=== PATIENT | female | born 1950 | race Caucasian/White ===

== ENCOUNTER 2019-11-08 14:02 | Outpatient (REF) | payer MEDICARE, BC, SELFPAY ==
[2019-11-08 18:52] LABS: Bilirubin Negative (Negative); Blood Trace-intact (Negative); Clarity Clear (Clear); Glucose Negative (Negative); Ketones Negative (Negative); Leukocyte Esterase Trace (Negative); Nitrite Negative (Negative); Specific Gravity 1.015 (1.005-1.025); Urobilinogen 0.2 EU/dL (Up TO 0.2)
[2019-11-08 19:05] LABS: Bacteria Rare HPF (Negative); C & S Indicated? Yes; Crystals Negative HPF (Negative); Epithelial Cells Few HPF (Negative); Mucus Negative (Negative); RBC 0-2 HPF (0-2); WBC 20-50 HPF (0-5)
== END 2019-11-08 14:22 ==
LOC: NCHCN 14:02
PROVIDERS: PCP Nurse Practitioner Family; Visit Provider Nurse Practitioner Family
DX: R35.0 Frequency of micturition (principal)
CPT/HCPCS: 81003; 81015; 87086

== ENCOUNTER 2019-11-26 11:56 | Outpatient (REF) | payer MEDICARE, BC, SELFPAY | END 2019-11-26 12:16 | LOC: NCHCN 11:56 | PROVIDERS: PCP Nurse Practitioner Family; Visit Provider Nurse Practitioner Family | DX: R39.9 Unspecified symptoms and signs involving the genitourinary system (principal) | CPT/HCPCS: 87086 ==

== ENCOUNTER 2019-11-28 16:17 | Outpatient (REF) | payer MEDICARE, BC, SELFPAY ==
--- NOTE | 2019-11-28 12:00 | PAPFT_PTH ---
PATIENT: Kena Cruz LOC: [facility] U#:[id number] AGE/SX: 68/F ROOM: RE11/28/[address]: Ghulam Gerard MD : 1950 BED: DIS: 11/28/2019 SPEC #: [id number] RECD: 11/28/19 16:49 STATUS: JENATommy REElaina #: [id number] ABHIJIT: 11/28/19 12:[address]: Ghulam Gerard DEPT: [facility] Cytology RECD BY: Sanam Garzon ENTERED: 11/28/19 16:50 SP TYPE: PAPFT OTHR DR: Tory Tiwari Tissues: 1 - CX/ENDOCX FOR PAP SMEARS Procedures: PAP THIN PREP/UVM Screening HPV DNA PROBE Comments: [id number]
--- NOTE | 2019-11-28 12:15 | PAPNONF_PTH ---
PATIENT: Kena Cruz LOC: [facility] U#:[id number] AGE/SX: 68/F ROOM: RE11/28/[address]: Ghulam Gerard MD : 1950 BED: DIS: 11/28/2019 SPEC #: [id number] RECD: 11/28/19 16:51 STATUS: JIE VEGA #: [id number] ABHIJIT: 11/28/19 12:[address]: Ghulam Gerard DEPT: [facility] Cytology RECD BY: Sanam Garzon ENTERED: 11/28/19 16:52 SP TYPE: VIVEK ARCE DR: Tory Tiwari Tissues: 1 - BODY FLUID CYTO(SPUTUM/URINE)UVM Procedures: BODY FLUID CYTO(URINE/SPUTUM) Comments: [id number] (TOTAL VOLUME = 10 ml's) (10 ml's URINE & 10 ml's CYTOLYT ADDED)
== END 2019-11-28 16:37 ==
LOC: LBN 16:17
PROVIDERS: PCP Nurse Practitioner Family; Visit Provider Obstetrics & Gynecology
DX: Z12.4 Encounter for screening for malignant neoplasm of cervix (principal); R31.29 Other microscopic hematuria
CPT/HCPCS: 88142; 87624; 88104

== ENCOUNTER 2020-03-04 01:00 | Outpatient (CLI) | payer MEDICARE, BC, SELFPAY ==
--- NOTE | 2020-03-04 11:15 | DI.MAMMO_ITS ---
EXAM: MG MAMMO SCREENING CLINICAL HISTORY: SCREENING, Z12.39 TECHNIQUE: Bilateral full field digital CC and MLO mammographic images were obtained with 3D tomosyn thesis and utilizing computer aided detection (CAD). COMPARISON: Available for comparison. FINDINGS: Masses/Architectural Distortion: None seen. Microcalcifications: No suspicious pleomorphic-type are seen. Skin Thickening/Nipple Retraction: None. IMPRESSION: 1. No significant interval change with no specific features of malignancy noted. 2. Unless there is more urgent need, screening mammography is recommended, as per [place] [employer] guidelines. BI-RADS Category 1 - Negative Breast Density - Category B - Scattered areas of fibroglandular density A negative radiographic report should not delay biopsy if a dominant or clinically suspicious mass is present. Up to ten percent of cancers are not identified on mammography. A negative report may reinforce clinical impression. Adenosis and dense breasts may obscure an underlying neoplasm. False positive reports average 6 to 10%. Patient will receive a letter notifying them of these results.
== END 2020-03-04 01:20 ==
PROVIDERS: PCP Nurse Practitioner Family; Visit Provider Nurse Practitioner Family
DX: Z12.31 Encounter for screening mammogram for malignant neoplasm of breast (principal)
CPT/HCPCS: 77063; 77067

== ENCOUNTER 2020-10-07 19:17 | Outpatient (REF) | payer MEDICARE, BC, SELFPAY ==
--- NOTE | 2020-10-07 14:30 | PAPNONF_PTH ---
PATIENT: Kena Cruz LOC: [facility] U#:[id number] AGE/SX: 69/F ROOM: RE10/07/[address]: Tory Tiwari : 1950 BED: DIS: 10/07/2020 SPEC #: [id number] RECD: 10/08/20 12:57 STATUS: JIE REElaina #: [id number] ABHIJIT: 10/07/20 14:[address]: Tory Tiwari DEPT: [facility] Cytology RECD BY: Sanam Garzon Tissues: 1 - BODY FLUID CYTO(SPUTUM/URINE)UVM Procedures: BODY FLUID CYTO(URINE/SPUTUM) Comments: [id number] (TOTAL VOLUME = 15 ml's (15 ml's URINE & 15 ml's CYTOLYTE ADDED)
[2020-10-07 20:53] LABS: HCT 43.2 % (36.0-46.0); HGB 13.9 g/dL (11.2-15.7); MCH 31.3 pg (27.0-33.0); MCHC 32.2 % (32.0-36.0); MCV 97.3 fL (80-95); MPV 10.9 fL (8.0-11.0); Platelet Count 207 10^3/uL (130-400); RBC 4.44 10^6/uL (3.93-5.22); RDW 14.2 % (11.7-14.6); RDW-SD 51.3 fL; WBC 4.72 10^3/uL (4.4-10.8)
[2020-10-07 21:00] LABS: Anion Gap 6.6 mmol/L (3-11); BUN 18 mg/dL (7-18); CO2 28.4 mmol/L (21.0-32.0); CREATININE 0.73 mg/dL (0.55-1.02); Calcium 10.4 mg/dL (8.5-10.1); Chloride 105 mmol/L (98-107); Glucose 90 mg/dL (74-106); Potassium 4.4 mmol/L (3.5-5.1); Sodium 140 mmol/L (136-145)
== END 2020-10-07 19:37 ==
LOC: NCHCN 19:17
PROVIDERS: PCP Nurse Practitioner Family; Visit Provider Nurse Practitioner Family
DX: N39.0 Urinary tract infection, site not specified (principal); R31.21 Asymptomatic microscopic hematuria
CPT/HCPCS: 80048; 85027; 88104

== ENCOUNTER 2020-10-15 03:41 | Outpatient (CLI) | payer MEDICARE, BC, SELFPAY ==
--- NOTE | 2020-10-15 | DI.MAMMO_ITS ---
EXAM: MG MAMMO DIAGNOSTIC UNI CLINICAL HISTORY: DIAGNOSTIC, LT BREAST DRAINAGE,N64.52 TECHNIQUE: Left full field digital CC and MLO mammographic images were obtained with 3D tomosynthesi s and utilizing computer aided detection (CAD). COMPARISON: Available for comparison. FINDINGS: Masses/Architectural Distortion: None seen. Microcalcifications: No suspicious pleomorphic-type are seen. Skin Thickening/Nipple Retraction: None. IMPRESSION: 1. No significant interval change with no specific features of malignancy noted. 2. Unless there is more urgent need, screening mammography is recommended, as per [place] [employer] guidelines. BI-RADS Category 1 - Negative Breast Density - Category B - Scattered areas of fibroglandular density Breast density category C or D implies that the patient has dense breast tissue. Dense breast tissue is very common and is not abnormal but dense breast tissue can make it harder to find cancer on a ma mmogram. Also, dense breast tissue may increase their breast cancer risk. This information about the result of the mammogram report was provided to the patient to raise their awareness. Use this report when you speak with the patient about their risks for breast cancer, which includes their family hist ory. At that time, you may recommend for more screening tests (Ultrasound or MRI) as they might be us eful based on their risk. A negative radiographic report should not delay biopsy if a dominant or clinically suspicious mass is present. Up to ten percent of cancers are not identified on mammography. A negative report may reinforce clinical impression. Adenosis and dense breasts may obscure an underlying neoplasm. False positive reports average 6 to 10%. Patient will receive a letter notifying them of these results.
== END 2020-10-15 04:01 ==
PROVIDERS: PCP Nurse Practitioner Family; Visit Provider Nurse Practitioner Family
DX: N64.52 Nipple discharge (principal)
CPT/HCPCS: 77061; 77065; G0279

== ENCOUNTER 2022-03-28 08:59 | Emergency (ER) | payer MEDICARE, BC, SELFPAY ==
[2022-03-28 09:10] VITALS: BP 123/64; PULSE 59; RESP 16; TEMP 36.2; O2SAT 99
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
--- NOTE | 2022-03-28 10:31 | DI.VRAD_ITS ---
PROCEDURE INFORMATION: Exam: XR Left Knee Exam date and time: 03/28/2022 10:09 AM Age: 71 years old Clinical indication: Injury or trauma; Fall; Blunt trauma; Knee; Left TECHNIQUE: Imaging protocol: Radiologic exam of the Left knee. Views: 4 or more views. COMPARISON: No relevant images were readily available for comparison purposes. FINDINGS: Bones/joints: No acute fracture or dislocation. Soft tissues: Unremarkable. IMPRESSION: No acute fracture or dislocation. Dictated and Authenticated by: Neto Spicer MD. Ordering:SERGEY Kelsey MD
[2022-03-28] MEDS: Acetaminophen 325 MG TAB 650 MG PO (10:45)
[2022-03-28 11:40] VITALS: BP 123/61; PULSE 46; TEMP 36.6; O2SAT 100
== END 2022-03-28 12:05 | disposition home or self-care (01) ==
PROVIDERS: Emergency Provider Physician Assistant; PCP Nurse Practitioner Family
DX: S80.02XA Contusion of left knee, initial encounter (principal); Z87.891 Personal history of nicotine dependence; V18.4XXA Pedal cycle driver injured in noncollision transport accident in traffic accident, initial encounter; Z96.651 Presence of right artificial knee joint
CPT/HCPCS: 29505; 99283; 73564; 99282

== ENCOUNTER → 2022-09-01 12:55 | Outpatient (BNVA) | payer MEDICARE, BC, SELFPAY | PROVIDERS: PCP Nurse Practitioner Family; Referring Provider Nurse Practitioner Family; Visit Provider Nurse Practitioner Gerontology | DX: R31.9 Hematuria, unspecified (principal); N39.46 Mixed incontinence | CPT/HCPCS: 81003; 99215 ==

== ENCOUNTER 2022-09-01 15:40 | Outpatient (REF) | payer MEDICARE, BC, SELFPAY ==
[2022-09-01 16:33] LABS: Bilirubin Negative (Negative); Blood Small (Negative); Clarity Clear (Clear); Glucose Negative (Negative); Ketones Negative (Negative); Leukocyte Esterase Trace (Negative); Nitrite Negative (Negative); Urobilinogen 0.2 EU/dL (Up TO 0.2); pH 6.5 (5-8)
[2022-09-01 16:38] LABS: Bacteria Few HPF (Negative); C & S Indicated? C&S Done As Ordered; Casts Negative LPF (Negative); Crystals Negative HPF (Negative); Epithelial Cells Few HPF (Negative); Mucus Negative (Negative); Other Cells Few Renal (Negative)
== END 2022-09-01 15:41 | disposition home or self-care (01) ==
LOC: LBN 15:40
PROVIDERS: PCP Nurse Practitioner Family; Visit Provider Nurse Practitioner Gerontology
DX: R31.9 Hematuria, unspecified (principal)
CPT/HCPCS: 81003; 81015; 87086

== ENCOUNTER → 2022-12-08 15:32 | Outpatient (BNVA) | payer MEDICARE, BC, SELFPAY | PROVIDERS: PCP Nurse Practitioner Family; Referring Provider Nurse Practitioner Family; Visit Provider Nurse Practitioner Gerontology | DX: R31.29 Other microscopic hematuria (principal); K59.00 Constipation, unspecified; N39.46 Mixed incontinence | CPT/HCPCS: 81003; 99214 ==

== ENCOUNTER 2022-12-08 15:51 | Outpatient (REF) | payer MEDICARE, BC, SELFPAY ==
[2022-12-08 17:09] LABS: Bilirubin Negative (Negative); Blood Small (Negative); Clarity Clear (Clear); Glucose Negative (Negative); Ketones Negative (Negative); Leukocyte Esterase Negative (Negative); Nitrite Negative (Negative); Specific Gravity >= 1.030 (1.005-1.025); Urobilinogen 0.2 mg/dL (Up to 0.2); pH 5.5 (5-8)
[2022-12-08 17:23] LABS: Bacteria Rare HPF (Negative); C & S Indicated? No; Casts Negative LPF (Negative); Crystals Negative HPF (Negative); Epithelial Cells Few HPF (Negative); Mucus Moderate (Negative); RBC 0-2 HPF (0-2); WBC 0-2 HPF (0-5)
== END 2022-12-08 15:52 | disposition home or self-care (01) ==
LOC: LBN 15:51
PROVIDERS: PCP Nurse Practitioner Family; Visit Provider Nurse Practitioner Gerontology
DX: R31.29 Other microscopic hematuria (principal)
CPT/HCPCS: 81003; 81015

== ENCOUNTER 2023-01-21 18:03 | Emergency (ER) | payer MEDICARE, BC, SELFPAY ==
[2023-01-21 18:12] VITALS: BP 134/73; PULSE 53; RESP 16; TEMP 36.4; O2SAT 97
--- NOTE | 2023-01-21 18:15 | DI.RAD_ITS ---
Exam(s) XR ANKLE RT COMPLETE EXAM: XR ANKLE RT COMPLETE CLINICAL HISTORY: pain. TECHNIQUE: 2D digital imaging was performed of the right ankle. Four images were obtained. AP, lat eral and oblique views were obtained. COMPARISON: No exams were available for comparison FINDINGS: BONES: No acute fracture is present. No bony destructive lesion is seen. There is a small plantar ca lcaneal spur. JOINTS: The ankle mortise is normally aligned. SOFT TISSUE: Normal. IMPRESSION: No acute abnormality. DATA REPOSITORY: RADIATION DOSE DELIVERED:
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
--- NOTE | 2023-01-21 18:55 | DI.VRAD_ITS ---
PROCEDURE INFORMATION: Exam: XR Right Ankle Exam date and time: 01/21/2023 6:36 PM Age: 72 years old Clinical indication: Injury or trauma; Other: Ywiesyed right ankle; Sprain or strain TECHNIQUE: Imaging protocol: Radiologic exam of the right ankle. Views: 3 or more views. COMPARISON: No relevant prior studies available. FINDINGS: Bones/joints: There is mild plantar calcaneal spurring. Osseous alignment is normal. No acute fracture or significant arthritic change. Soft tissues: Normal. IMPRESSION: No acute abnormality. Mild plantar calcaneal spurring noted Dictated and Authenticated by: Reyes Stephenson MD. Ordering:ALEJANDRO Santiago MD
== END 2023-01-21 19:18 | disposition home or self-care (01) ==
PROVIDERS: Emergency Provider Emergency Medicine; PCP Nurse Practitioner Family
DX: S90.01XA Contusion of right ankle, initial encounter (principal); W20.8XXA Other cause of strike by thrown, projected or falling object, initial encounter
CPT/HCPCS: 99283; 73610

== ENCOUNTER 2023-05-10 12:51 | Outpatient (REF) | payer MEDICARE, BC, SELFPAY ==
[2023-05-10 15:37] LABS: Anion Gap 6.9 mmol/L (3-11); BUN 10 mg/dL (7-18); CO2 30.1 mmol/L (21.0-32.0); CREATININE 0.5 mg/dL (0.55-1.02); Calcium 10.2 mg/dL (8.5-10.1); Calculated LDL 158 mg/dL (<100); Chloride 108 mmol/L (98-107); Cholesterol 260 mg/dL (<200); Estimated GFR 99.59 (mL/min/1.73m2); Glucose 89 mg/dL (74-106); HDL Cholesterol 76 mg/dL (40-60); Potassium 4.4 mmol/L (3.5-5.1); Sodium 145 mmol/L (136-145); Triglyceride 134 mg/dL (<150)
== END 2023-05-10 12:52 | disposition home or self-care (01) ==
LOC: NCHCN 12:51
PROVIDERS: PCP Nurse Practitioner Family; Visit Provider Family Medicine
DX: E78.5 Hyperlipidemia, unspecified (principal); R79.89 Other specified abnormal findings of blood chemistry
CPT/HCPCS: 80048; 80061

== ENCOUNTER → 2023-06-07 01:45 | Outpatient (CLI) | payer MEDICARE, BC, SELFPAY ==
--- NOTE | 2023-06-07 | DI.MAMMO_ITS ---
Exam(s) MAMMO SCREENING EXAM: MAMMO SCREENING CLINICAL HISTORY: SCREENING, Z12.39. TECHNIQUE: Bilateral full field digital CC and MLO mammographic images were obtained with 3D tomosyn thesis and utilizing computer aided detection (CAD). COMPARISON: Prior mammograms were reviewed. FINDINGS: There has been no significant change in the appearance and distribution of the fibroglandular tissue. There are no new spiculated masses nor malignant appearing microcalcification groups. There is no significant architectural distortion nor skin thickening-retraction. IMPRESSION: No radiographic evidence of malignancy. BI-RADS Category 1 - Negative Breast Density - Category B - Scattered areas of fibroglandular density Breast density Category C or D implies that the patient has dense breast tissue. Dense breast tissue can make it harder to find cancer on a mammogram. Dense breast tissue is also associated with an incr eased risk of breast cancer. This information about the result of the mammogram report was provided to the patient to raise their awareness. Use this report when you speak with the patient about their risks for breast cancer, which includes their family history. At that time, you may recommend additional screening tests (Ultrasoun d or MRI) as these tests may add significant information. A negative radiographic report should not delay biopsy if a dominant or clinically suspicious mass is present. Up to ten percent of cancers are not identified on mammography. A negative report may reinforce clinical impression. Adenosis and dense breasts may obscure an underlying neoplasm. False positive reports average 6 to 10%. Patient will receive a letter notifying them of these results.
== END ==
PROVIDERS: PCP Family Medicine; Visit Provider Family Medicine
DX: Z12.31 Encounter for screening mammogram for malignant neoplasm of breast (principal)
CPT/HCPCS: 77063; 77067

== ENCOUNTER → 2023-08-01 11:19 | Outpatient (CLI) | payer MEDICARE, BC, SELFPAY ==
--- NOTE | 2023-08-01 14:16 | DI.RAD_ITS ---
Exam(s) XR LUMBAR SPINE COMPLETE EXAM: XR LUMBAR SPINE COMPLETE CLINICAL HISTORY: Mechanical low back pain M54.59. TECHNIQUE: 2D digital imaging was performed. COMPARISON: CR XR THORACIC SPINE COMPLETE from 08/01/2023 FINDINGS: Six views: There is a scoliosis lumbar spine convex right which is part of a bidirectional thoracolumbar scolios is which is convex left in the thoracic spine and convex right in the lumbar spine. There is a mild rotational component of the scoliosis in the upper lumbar spine. There is no evidence of fracture nor listhesis. Disc spaces in the lumbar spine are relatively well maintained. There are advanced degenerative changes in the facet joints at L4-5 and L5-S1 levels. M ore moderate degenerative changes in the facets above this level. Sacroiliac joints appear unremarka ble. No osseous lesions evident. IMPRESSION: Bidirectional thoracolumbar scoliosis as described above. Facet arthropathy in the lower lumbar spine. No prominent disc space narrowing nor obvious listhesis. DATA REPOSITORY: RADIATION DOSE DELIVERED:
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
== END ==
PROVIDERS: PCP Family Medicine; Visit Provider Family Medicine
DX: M41.9 Scoliosis, unspecified (principal); M47.816 Spondylosis without myelopathy or radiculopathy, lumbar region; M47.817 Spondylosis without myelopathy or radiculopathy, lumbosacral region
CPT/HCPCS: 72072; 72110

== ENCOUNTER 2024-02-16 12:58 | Emergency (ER) | payer MEDICARE, BC, SELFPAY ==
[2024-02-16] VITALS (14 sets, daily range): BP systolic 155–191; BP diastolic 75–94; PULSE 43–56; RESP 9–18; O2SAT 98
--- NOTE | 2024-02-16 12:45 | RT.EKG_ITS ---
APPROVED REPORT Exam: Resting ECG Reason for Exam: chest pain Patient Location: E HR:47 bpm ECG Measurements Heart Rate 47 AXIS AZ 168 P 39 QRSd 92 QRS 37 QT 463 T 38 QTc 412 Conclusion Sinus bradycardia...rate< 60 Physician: no stemi
[2024-02-16 13:21] LABS: Abs Immature Grans 0.01 10^3/uL (0.0-0.06); Absolute Basophil Count 0.03 10^3/uL (0.0-0.2); Absolute Eosinophil Count 0.08 10^3/uL (0.0-0.7); Absolute Lymphocyte Count 1.32 10^3/uL (1.2-3.4); Absolute Monocyte Count 0.55 10^3/uL (0.1-0.8); Absolute Neutrophil Count 2.51 10^3/uL (1.2-6.7); Basophils % 0.7 %; Eosinophils % 1.8 %; HCT 45.4 % (36.0-46.0); HGB 14.5 g/dL (11.2-15.7); Immature Grans % 0.2 %; Lymphocytes % 29.3 %; MCHC 31.9 % (32.0-36.0); MCV 97 fL (80-95); MPV 9.7 fL (8.0-11.0); Monocytes % 12.2 %; Neutrophils % 55.8 %; Platelet Count 197 10^3/uL (130-400); RBC 4.67 10^6/uL (3.93-5.22); RDW 14.4 % (11.7-14.6)
[2024-02-16 13:38] LABS: ALT 30 U/L (14-59); AST 16 U/L (15-37); Albumin 4.1 g/dL (3.4-5.0); Alkaline Phosphatase 135 U/L (46-116); Anion Gap 7.1 mmol/L (3-11); BUN 15 mg/dL (7-18); Bilirubin, Total 0.4 mg/dL (0.2-1.0); CO2 28.9 mmol/L (21.0-32.0); CREATININE 0.7 mg/dL (0.55-1.02); Calcium 10.3 mg/dL (8.5-10.1); Chloride 105 mmol/L (98-107); Estimated GFR 91.26 (mL/min/1.73m2); Glucose 83 mg/dL (74-106); Lipase 46 U/L (16-77); Potassium 4.1 mmol/L (3.5-5.1); Sodium 141 mmol/L (136-145); Total Protein 7.2 g/dL (6.4-8.2); Troponin I < 50 ng/L (< or =60)
--- NOTE | 2024-02-16 15:20 | ED.GENADUL_ITS ---
Discharge Plan Disposition Patient Disposition: Home Discharge Details Clinical Impression: Trapezius muscle strain, Back pain Primary Care Provider: Lenka Gusman ED Provider: Sanam Avina Home Meds and New Rx's Prescriptions: New cyclobenzaprine 5 mg tablet 5 mg PO BID PRNQty: 10 0RF diclofenac sodium 3 % gel 1 applic topical BID Qty: 100 0RF Continued cholecalciferol (vitamin D3) [Vitamin D3] 2,000 UNIT capsule 2,000 unit PO DAILY fluticasone propionate 50 mcg/actuation spray,suspension 2 spray intranasal DAILY PRN Rx Instructions: administer into each nostril sertraline 100 MG tablet 200 mg PO DAILY ibuprofen 200 mg capsule 600 mg PO TID-QID PRN Discharge Instructions Additional Instructions: take flexeril 5 mg as needed for muscle pain, use caution as this may make you drowsy. the dose may be increased to 10 mg if no effect with 5 mg doseage motrin 400-600 mg every 8 hours with food continue to range shoulder, but refrain from repetitive motion or lifting>5lbs light massage to area and heat/cold as tolerated return earlier with worsening pain, fever, or should any new concerns arise please have your blood pressure rechecked by your doctor's office next week Referrals: Lenka Gusman [Primary Care Provider] - 1 week Discharge Data Discharge Date/Time-TO BE ENTERED AT DEPARTURE: 02/16/24 14:30 HPI General Date/Time Provider Initiated Documentation: 02/16/24 12:59 . HPI Narrative: This 73-year-old female presents with left back pain and shoulder pain after gardening all day on Monday. States she has pain with any sort of motion and bothering her consistently and worsening. She denies any chest pain or shortness of breath. Denies any nausea or vomiting or history of coronary artery disease. States predominantly the pain is exacerbated with position change and movement. Related Data Home Medications Medication Instructions Recorded Confirmed cholecalciferol (vitamin D3) 50 2,000 unit PO DAILY 03/25/14 02/16/24 mcg (2,000 unit) capsule (Vitamin D3) sertraline 100 mg tablet 200 mg PO DAILY 01/11/16 02/16/24 fluticasone propionate 50 2 spray intranasal DAILY PRN 09/01/22 02/16/24 mcg/actuation nasal spray,suspension cyclobenzaprine 5 mg tablet 5 mg PO BID PRN #10 tabs 02/16/24 diclofenac sodium 3 % topical gel 1 applic topical BID #100 grams 02/16/24 ibuprofen 200 mg capsule 600 mg PO TID-QID PRN 02/16/24 02/16/24 Previous Rx's Medication Instructions Recorded cyclobenzaprine 5 mg tablet 5 mg PO BID PRN #10 tabs 02/16/24 diclofenac sodium 3 % topical gel 1 applic topical BID #100 grams 02/16/24 Allergies Allergy/AdvReac Type Severity Reaction Status Date / Time Penicillins Allergy hives Unverified 02/16/24 13:06 General Stated Complaint: Chest Pain ROSALIA: 3 Exam Narrative Exam Narrative: 73-year-old female presenting with tenderness in the upper left trapezius region with point tenderness, cardiac rate rhythm regular, no murmurs or rubs, no respiratory distress, lungs clear to auscultation, distal pulses intact, range of motion of shoulder intact, however with abduction and external rotation, patient is tenderness neurovascularly intact, no rashes or lesions Course Vital Signs Vital signs: Vital Signs Pulse 51 L 02/16/24 13:01 Respiratory Rate 18 02/16/24 13:01 Blood Pressure 191/94 H 02/16/24 13:01 Pulse Oximetry 98 02/16/24 13:01 Pulse 51 L 02/16/24 14:18 Pulse 48 L 02/16/24 13:50 Respiratory Rate 15 02/16/24 13:50 Respiratory Effort Normal 02/16/24 13:17 Blood Pressure 155/75 H 02/16/24 14:18 Blood Pressure Mean 99 02/16/24 14:04 Blood Pressure Position Sitting 02/16/24 13:01 Pulse Oximetry 98 02/16/24 14:18 Oxygen Delivery Method Room Air 02/16/24 14:18 Oxygen Flow Rate 0 02/16/24 14:18 Pain Level 7 02/16/24 13:17 Lab/Test Results Lab/Test Results: Laboratory Tests Range/Units 02/16/24 13:12 WBC (4.4-10.8) 10^3/uL 4.50 RBC (3.93-5.22) 10^6/uL 4.67 Hgb (11.2-15.7) g/dL 14.5 Hct (36.0-46.0) % 45.4 MCV (80-95) fL 97 H MCH (27.0-33.0) pg 31.0 MCHC (32.0-36.0) % 31.9 L RDW (11.7-14.6) % 14.4 Plt Count (130-400) 10^3/uL 197 MPV (8.0-11.0) fL 9.7 Immature Gran % % 0.2 Neutrophils % % 55.8 Lymphocytes % % 29.3 Monocytes % % 12.2 Eosinophils % % 1.8 Basophils % % 0.7 Nucleated RBC % (0.0-0.3) % 0.0 Absolute Neutrophils (1.2-6.7) 10^3/uL 2.51 Absolute Lymphocytes (1.2-3.4) 10^3/uL 1.32 Absolute Monocytes (0.1-0.8) 10^3/uL 0.55 Absolute Eosinophils (0.0-0.7) 10^3/uL 0.08 Absolute Basophils (0.0-0.2) 10^3/uL 0.03 Sodium (136-145) mmol/L 141 Potassium (3.5-5.1) mmol/L 4.1 Chloride (98-107) mmol/L 105 Carbon Dioxide (21.0-32.0) mmol/L 28.9 Anion Gap (3-11) mmol/L 7.1 BUN (7-18) mg/dL 15 Creatinine (0.55-1.02) mg/dL 0.7 Est GFR (CKD-EPI 2020) (mL/min/1.73m2) 91.26 Glucose (74-106) mg/dL 83 Calcium (8.5-10.1) mg/dL 10.3 H Total Bilirubin (0.2-1.0) mg/dL 0.4 AST (15-37) U/L 16 ALT (14-59) U/L 30 Alkaline Phosphatase (46-116) U/L 135 H Troponin I (< or =60) ng/L < 50 Total Protein (6.4-8.2) g/dL 7.2 Albumin (3.4-5.0) g/dL 4.1 Lipase (16-77) U/L 46 Medical Decision Making 73-year-old female presenting with upper trapezius pain after straining injury. Patient has reproducible tenderness, trigger point injection with 6 cc of Marcaine 0.5% was performed with good effect, patient reports marked improvement in symptoms. I see no indication for x-ray imaging at this time as there is no direct trauma and my suspicion is very low that this is cardiac. EKG is baseline for patient and initial troponin negative, labs do not show evidence of acute abnormality. Patient is feeling improvement thus trigger point injection and is requesting discharge home. I will place her on 5 mg of Flexeril which she may take as needed and diclofenac gel. Her blood pressure was mildly elevated, she is encouraged to have this rechecked by primary care physician in the outpatient setting. Patient is also bradycardic, this is her baseline when I compare back to 2011, she is asymptomatic with this. Temperature is 36.9 orally. Return precautions reviewed and patient expressed understanding Quality:SDOH Health Related Social Needs: No Data to Display PFSH All Active Problems (Updated 02/16/24 @ 14:09 by KELSIE Gauthier) Back pain (Acute) Trapezius muscle strain (Acute) Mixed stress and urge urinary incontinence (Acute) Renal calculus (Chronic) Chronic low back pain (Chronic) Anxiety with depression (Acute) Abnormal breast exam (Acute) Hematuria (Acute) Knee pain, bilateral (Acute) Skin lesion (Acute) Urinary retention (Acute) Family history of alcoholism (Acute) Hyperlipidemia (Acute) Renal calculus, left (Acute) Low back pain (Acute) DJD (degenerative joint disease) (Chronic) Anxiety and depression (Acute) Urinary tract infection (Acute) Urinary frequency (Acute) Benign neoplasm of hand (Acute 01/06/14) Impacted cerumen (Acute 09/04/14) Otalgia (Acute 09/04/14) Family History Mother Bladder cancer Social History Smoking/Tobacco Use Status: Former Tobacco Use Smoking risk assessment performed?: Yes Drug use: Never Substance use type: does not use
== END 2024-02-16 14:30 | disposition home or self-care (01) ==
PROVIDERS: Emergency Provider Physician Assistant; PCP Family Medicine
DX: M25.512 Pain in left shoulder (principal); M54.2 Cervicalgia; S46.819A Strain of other muscles, fascia and tendons at shoulder and upper arm level, unspecified arm, initial encounter; X50.0XXA Overexertion from strenuous movement or load, initial encounter
CPT/HCPCS: 80053; 83690; 93005; 99283; 84484; 85025; 93010

== ENCOUNTER 2024-02-18 10:45 | Emergency (ER) | payer MEDICARE, BC, SELFPAY ==
[2024-02-18 10:55] VITALS: BP 158/81; PULSE 63; RESP 12; TEMP 36.8; O2SAT 97
--- NOTE | 2024-02-18 12:00 | DI.RAD_ITS ---
Exam(s) XR SHOULDER LT COMPLETE 2+V EXAM: XR SHOULDER LT COMPLETE 2+V CLINICAL HISTORY: shoulder pain. TECHNIQUE: 2D digital imaging was performed. Three views. COMPARISON: No exams were available for comparison FINDINGS: BONES: No acute fracture is present. No bony destructive lesion is seen. JOINTS: No dislocation present. SOFT TISSUE: Normal. IMPRESSION: Unremarkable radiographs of the left shoulder. DATA REPOSITORY: RADIATION DOSE DELIVERED:
--- NOTE | 2024-02-18 12:00 | DI.RAD_ITS ---
Exam(s) XR CERVICAL SPINE COMP 4-5V EXAM: XR CERVICAL SPINE COMP 4-5V CLINICAL HISTORY: neck pain- radiation down left arm. TECHNIQUE: 2D digital imaging was performed. Five views were performed. COMPARISON: No exams were available for comparison FINDINGS: BONES: No fracture or destructive lesion. Vertebral bodies are unremarkable. Mild facet degenerativ e changes are noted throughout. There is mild left neural foraminal narrowing at C3-4 and C4-5. DISKS: Multilevel degenerative disc changes in small and small endplate osteophytes. ALIGNMENT: Cervical spinal alignment is within normal limits. The odontoid and atlantoaxial articulat ions are normal. SOFT TISSUE: Normal. The lung apices are clear. IMPRESSION: Degenerative disc changes and facet degenerative changes causing mild neural foraminal narrowing at C 3-4 and C4-5. DATA REPOSITORY: RADIATION DOSE DELIVERED:
[2024-02-18] MEDS: Diclofenac 1% Gel 100 GM TUBE TP (12:14)
[2024-02-18] MEDS: Lidocaine 5% Patch 1 PATCH TP (12:14)
--- NOTE | 2024-02-18 14:03 | DI.VRAD_ITS ---
PROCEDURE INFORMATION: Exam: XR Spine; Cervical Exam date and time: 02/18/2024 1:17 PM Age: 73 years old Clinical indication: Pain: Neck pain- radiation down left arm TECHNIQUE: Imaging protocol: XR of the spine. Exam focused on the cervical spine. Views: 1 view. COMPARISON: CR XR THORACIC SPINE COMPLETE 08/01/2023 1:40 PM FINDINGS: Bones/joints: Normal spinal alignment. Multilevel [id number] disc degeneration. Left-sided foraminal narrowing. Soft tissues: Normal. IMPRESSION: Multilevel foraminal narrowing. Dictated and Authenticated by: Ghulam Rodriguez MD. Ordering:SHASHI Jeffries MD
--- NOTE | 2024-02-18 14:04 | DI.VRAD_ITS ---
PROCEDURE INFORMATION: Exam: XR Left Shoulder Exam date and time: 02/18/2024 1:22 PM Age: 73 years old Clinical indication: Pain; Shoulder; Left TECHNIQUE: Imaging protocol: Radiologic exam of the left shoulder. Views: 2 or more views. COMPARISON: CR XR CERVICAL SPINE COMP 4-5V 02/18/2024 1:17 PM FINDINGS: Bones/joints: Normal for age. Soft tissues: Normal. IMPRESSION: No acute findings. Dictated and Authenticated by: Ghulam Rodriguez MD. Ordering:SHASHI Jeffries MD
--- NOTE | 2024-02-18 14:22 | ED.GENADUL_ITS ---
Discharge Plan Disposition Patient Disposition: Home Discharge Details Clinical Impression: Cervical disc disorder with radiculopathy Primary Care Provider: Lenka Gusman ED Provider: Mervin Gonsales Home Meds and New Rx's Prescriptions: New gabapentin 100 mg capsule 100 mg PO TID Qty: 30 0RF Continued cholecalciferol (vitamin D3) [Vitamin D3] 2,000 UNIT capsule 2,000 unit PO DAILY fluticasone propionate 50 mcg/actuation spray,suspension 2 spray intranasal DAILY PRN Rx Instructions: administer into each nostril sertraline 100 MG tablet 200 mg PO DAILY ibuprofen 200 mg capsule 600 mg PO TID-QID PRN diclofenac sodium 3 % gel 1 applic topical BID Qty: 100 0RF Discontinued cyclobenzaprine 5 mg tablet 5 mg PO BID PRNQty: 10 0RF Discharge Instructions Instructions: Cervical Strain (ED), Cervical Radiculopathy (ED) Additional Instructions: At this time your x-ray of your shoulder was unremarkable but your neck x-ray did show multiple narrowing of your cervical spine. I do feel that given the increase activity with then associated pain and discomfort has now caused some nerve pain which is why your pain radiates down into your arm. You may use the sling as needed for comfort but please remove this multiple times a day and perform range of motion of your shoulder. If you have any new or significant worsening of symptoms feel free to return the emergency department for reassessment otherwise follow-up with your primary care provider for recheck. Referrals: Lenka Gusman [Primary Care Provider] - 5 days HPI General Mode of arrival: ambulatory . Date/Time Provider Initiated Documentation: 02/18/24 11:11 . Limitations to Documentation: no limitations . Information obtained by: patient and RN notes reviewed . History of Present Illness 73 year old F presents to the emergency department with the chief complaint of Left shoulder pain, described as moderate and severe, Quality is described as aching and sharp, and is localized to the left and upper extremity. Patient extremity. Patient started experiencing this day(s) (6) and it has been intermittent. Immobilization improves symptom(s), Movement worsens symptoms . Patient notes no other symptoms.. Patient did receive the following treatments prior to arrival, NSAID Related Data Home Medications Medication Instructions Recorded Confirmed cholecalciferol (vitamin D3) 50 2,000 unit PO DAILY 03/25/14 02/18/24 mcg (2,000 unit) capsule (Vitamin D3) sertraline 100 mg tablet 200 mg PO DAILY 01/11/16 02/18/24 fluticasone propionate 50 2 spray intranasal DAILY PRN 09/01/22 02/18/24 mcg/actuation nasal spray,suspension diclofenac sodium 3 % topical gel 1 applic topical BID #100 grams 02/16/24 02/18/24 ibuprofen 200 mg capsule 600 mg PO TID-QID PRN 02/16/24 02/18/24 gabapentin 100 mg capsule 100 mg PO TID #30 caps 02/18/24 Previous Rx's Medication Instructions Recorded diclofenac sodium 3 % topical gel 1 applic topical BID #100 grams 02/16/24 gabapentin 100 mg capsule 100 mg PO TID #30 caps 02/18/24 Allergies Allergy/AdvReac Type Severity Reaction Status Date / Time Penicillins Allergy hives Unverified 02/16/24 13:06 General Stated Complaint: Orthopedic ROSALIA: 4 Review of Systems Cardiovascular Cardiovascular: Denies chest pain and Denies dyspnea Respiratory Respiratory: Denies dyspnea Gastrointestinal Gastrointestinal: Denies abdominal pain Musculoskeletal Musculoskeletal: Reports as per HPI, Reports arthralgias, Denies joint swelling, Denies limited range of motion, Denies muscle weakness, Denies numbness, Reports radiating pain into limb and Reports tingling Integumentary/Breasts Skin/Breast: Denies rash Neurologic Neurologic: Denies numbness and Reports tingling Exam Const General: cooperative, no acute distress and not ill appearing Orientation: alert, awake and oriented x3 HENMT Mouth: moist mucous membranes Resp Effort & Inspection: normal respiratory effort, able to speak in complete sentences and no respiratory distress Cardio Rate: regular rate Rhythm: regular rhythm Pulses: normal peripheral pulses Back/Spine/Pelvis Cervical Spine: cervical muscular tenderness, pain with cervical ROM (Which does cause some radiation down left arm) and No cervical spinal tenderness Thoracic/Lumbar Spine: No thoracic spinal tenderness Skin General skin exam: no rashes or lesions noted Neuro General: patient alert, patient awake, patient oriented x3, moves all extremities and no focal motor deficits Sensory Exam: no sensory deficits noted Extrem General: normal exam except as noted Left upper extremity: normal to inspection, full ROM, shoulder/upper arm Details: tenderness Location: not of the proximal humerus and not of the scapula and axillary nerve sensory function normal, elbow/forearm Details: normal to inspection and normal ROM; no tenderness and wrist Details: normal to inspection and normal ROM; no tenderness Course Vital Signs Vital signs: Vital Signs Temperature 36.8 C 02/18/24 10:55 Pulse 63 02/18/24 10:55 Respiratory Rate 12 02/18/24 10:55 Blood Pressure 158/81 H 02/18/24 10:55 Pulse Oximetry 97 02/18/24 10:55 Temperature 36.8 C 02/18/24 10:55 Temperature Source Temporal Artery Scan 02/18/24 10:55 Pulse 63 02/18/24 10:55 Respiratory Rate 12 02/18/24 10:55 Respiratory Effort Normal, Non-Labored 02/18/24 11:00 Blood Pressure 158/81 H 02/18/24 10:55 Blood Pressure Position Sitting 02/18/24 10:55 Pulse Oximetry 97 02/18/24 10:55 Oxygen Delivery Method Room Air 02/18/24 10:55 Oxygen Flow Rate 0 02/18/24 10:55 Pain Level 7 02/18/24 12:03 Medical Decision Making Patient presenting to the emergency department for chief complaint of left shoulder pain with some radiation down her arm along with some left neck pain. Patient reports on Monday she had been carrying potting soil, gardening, and working quite a bit outside when that seem to cause some left neck and shoulder pain. Pain is also subscapular in nature and seems to be positional and increases or relieved with movement and positioning. Patient denies any chest pain, palpitations, syncope lightheadedness shortness of breath or other symptoms. Patient was seen here 2 days ago for similar symptoms and had cardiac workup, lidocaine injection which provided some but not on lasting relief and was prescribed muscle relaxants along with topical NSAID. Patient reports that muscle relaxers have not improved symptoms at all and was concerned due to tomorrow being holiday and not be able to get into primary care right away. Physical exam shows soft tissue tenderness to the left trapezius and subscapular area, patient was able to reproduce pain by positioning and movement but full range of motion is noted of left shoulder. No obvious trauma rash or other symptoms can be found. Previous diagnosis of left trapezium strain. Given patient stating some radiculopathy I do question also possible cervical strain with some radiculopathy. Given lack of improvement will perform x-ray imaging of shoulder and C-spine. Did discuss with patient atypical cardiac findings and low suspicion of this but given her age and potential we did use shared decision making and after discussion of this and realization that patient had cardiac workup 2 days ago we will forego any further evaluation given low likelihood. Patient states understanding of this. Pending results patient given topical lidocaine and diclofenac given that she stated that she had not filled that medication. Review of radiological imaging and radiologist interpretation shows no acute findings within the left shoulder but there is multiple areas of narrowing within C-spine. I do's again suspect some degenerative changes causing radiculopathy aggravated by patient's physical activity earlier in the week. Reassessed patient and she stated little improvement with the additional medications. Due to this did discuss with patient risk versus benefit of limited supply of narcotic which she was agreeable to along with attempting gabapentin for radiculopathy. Will start patient on low-dose at 100 mg 3 times daily and patient placed upon follow-up list to follow-up with primary care provider for reassessment preferably later this week. After discussion of diagnosis and plan of care patient has no further needs, questions, or concerns and states clear understanding to return to the emergency department for any worsening symptoms. This documentation was generated using [employer] system, please disregard any oddities of phrase or misspellings. Imaging Data Radiologic Study: Imaging: X-Ray Radiologist's impression: Exam(s) PROCEDURE INFORMATION: Exam: XR Spine; Cervical Exam date and time: 02/18/2024 1:17 PM Age: 73 years old Clinical indication: Pain: Neck pain- radiation down left arm TECHNIQUE: Imaging protocol: XR of the spine. Exam focused on the cervical spine. Views: 1 view. COMPARISON: CR XR THORACIC SPINE COMPLETE 08/01/2023 1:40 PM FINDINGS: Bones/joints: Normal spinal alignment. Multilevel [id number] disc degeneration. Left-sided foraminal narrowing. Soft tissues: Normal. IMPRESSION: Multilevel foraminal narrowing. Dictated and Authenticated by: Ghulam Rodriguez MD. Radiologic Study #2: Imaging: X-Ray Radiologist's impression: Exam(s) PROCEDURE INFORMATION: Exam: XR Left Shoulder Exam date and time: 02/18/2024 1:22 PM Age: 73 years old Clinical indication: Pain; Shoulder; Left TECHNIQUE: Imaging protocol: Radiologic exam of the left shoulder. Views: 2 or more views. COMPARISON: CR XR CERVICAL SPINE COMP 4-5V 02/18/2024 1:17 PM FINDINGS: Bones/joints: Normal for age. Soft tissues: Normal. IMPRESSION: No acute findings. Dictated and Authenticated by: Ghulam Rodriguez MD. Quality:SDOH Health Related Social Needs: No Data to Display PFSH All Active Problems Cervical disc disorder with radiculopathy (Acute) Back pain (Acute) Trapezius muscle strain (Acute) Mixed stress and urge urinary incontinence (Acute) Renal calculus (Chronic) Chronic low back pain (Chronic) Anxiety with depression (Acute) Abnormal breast exam (Acute) Hematuria (Acute) Knee pain, bilateral (Acute) Skin lesion (Acute) Urinary retention (Acute) Family history of alcoholism (Acute) Hyperlipidemia (Acute) Renal calculus, left (Acute) Low back pain (Acute) DJD (degenerative joint disease) (Chronic) Anxiety and depression (Acute) Urinary tract infection (Acute) Urinary frequency (Acute) Benign neoplasm of hand (Acute 01/06/14) Impacted cerumen (Acute 09/04/14) Otalgia (Acute 09/04/14) Family History Mother Bladder cancer Social History Smoking/Tobacco Use Status: Former Tobacco Use Smoking risk assessment performed?: Yes Drug use: Never Substance use type: does not use Housing: house Do you feel safe at home: Yes Do you feel safe in your relationship?: Yes
--- NOTE | 2024-02-18 14:33 | NUR.NOTE ---
Referrla faxed to PCP for radiculopathy w/neck pain, this week. Nursing Note:
[2024-02-18 14:43] VITALS: BP 138/92; PULSE 60; RESP 18; O2SAT 94
== END 2024-02-18 14:43 | disposition home or self-care (01) ==
PROVIDERS: Emergency Provider Nurse Practitioner Family; PCP Family Medicine
DX: M50.10 Cervical disc disorder with radiculopathy, unspecified cervical region (principal); M25.512 Pain in left shoulder; M79.602 Pain in left arm
CPT/HCPCS: 99284; 72050; 73030; 99283

== ENCOUNTER → 2024-02-26 10:29 | Outpatient (BNVA) | payer MEDICARE, BC, SELFPAY | PROVIDERS: PCP Family Medicine; Referring Provider Family Medicine; Visit Provider Student in an Organized Health Care Education/Training Program | DX: M72.0 Palmar fascial fibromatosis [Dupuytren] (principal) | CPT/HCPCS: 99213 ==

== ENCOUNTER → 2024-04-03 00:29 | Outpatient (CLI) | payer MEDICARE, BC, SELFPAY ==
--- NOTE | 2024-04-03 11:30 | DI.MRI_ITS ---
Exam(s) MR CERVICAL SPINE WO EXAM: MR CERVICAL SPINE WO CLINICAL HISTORY: Cervical radiculopathy, M54.12 TECHNIQUE: Multiplanar multisequence MRI of the cervical spine was performed without intravenous con trast. COMPARISON: CR,XR XR CERVICAL SPINE COMP 4-5V from 02/18/2024 FINDINGS: BONES: Vertebral body heights are maintained. Alignment is normal. Bone marrow signal intensity is wi thin normal limits. CERVICAL CORD: Craniovertebral junction is unremarkable. The cervical cord is normal size and signal intensity. SOFT TISSUES: Unremarkable. C2-3: Small endplate osteophytes. No disc herniation or bulge is identified. No evidence of neural foraminal narrowing. No significant central canal stenosis. C3-4: Small endplate osteophytes. Facet joint osteophytes. No disc herniation or bulge is identifie d. No evidence of neural foraminal narrowing. No significant central canal stenosis. C4-5: Small endplate osteophytes. Facet joint osteophytes. No disc herniation or bulge is identifie d. Bilatneural foraminal narrowing. No significant central canal stenosis. C5-6: Endplate osteophytes projecting posteriorly. Facet joint osteophytes. No disc herniation or b ulge is identified.Bilat neural foraminal narrowing. No significant central canal stenosis. C6-7: Small endplate osteophytes projecting posteriorly. Facet joint osteophytes peer no disc hernia tion or bulge is identified. No evidence of neural foraminal narrowing. No significant central canal stenosis. C7-T1: No disc herniation or bulge is identified. No evidence of neural foraminal narrowing. No signi ficant central canal stenosis. IMPRESSION: Degenerative facet joint changes and endplate osteophytes combine to produce neural foraminal narrowi ng bilaterally at 3 4 through C 5 6. No central canal stenosis or disc herniation. DATA REPOSITORY:
== END ==
PROVIDERS: PCP Family Medicine; Visit Provider Family Medicine
DX: M54.12 Radiculopathy, cervical region (principal); M99.71 Connective tissue and disc stenosis of intervertebral foramina of cervical region
CPT/HCPCS: 72141

== ENCOUNTER 2024-05-30 02:43 | Outpatient (CLI) | payer MEDICARE, BC, SELFPAY ==
--- NOTE | 2024-05-30 | DI.DEXA_ITS ---
Exam(s) XR DEXA BONE DENSITY W/WO CHRISTOPHER EXAM: XR DEXA BONE DENSITY W/WO CHRISTOPHER CLINICAL HISTORY: AGE RELATED OSTEOPOROSIS M81.0 TECHNIQUE: COMPARISON: DX DEXA BONE DENSITY WITH CHRISTOPHER from 12/16/2013 FINDINGS: Lateral Spine Image: Unremarkable. No compression deformities identified. Left hip: Total T-Score: -2.7. This compares to -1.9 on the prior examination. Total Z-Score: -1.0 T- and Z-scores: Findings are consistent with osteoporosis. Lumbar Spine: Total T-Score: -3.7. This compares to -3.3 on the prior examination. Total Z-Score: -1.4 T- and Z-scores: Findings are consistent with osteoporosis. IMPRESSION: Findings of osteoporosis in the left hip and lumbar spine.
== END 2024-05-30 03:03 ==
LOC: DI 02:43
PROVIDERS: PCP Family Medicine; Visit Provider Family Medicine
DX: M81.0 Age-related osteoporosis without current pathological fracture (principal); Z13.820 Encounter for screening for osteoporosis
CPT/HCPCS: 77080

== ENCOUNTER 2024-06-06 14:44 | Outpatient (CLI) | payer MEDICARE, BC, SELFPAY ==
[2024-06-06 16:07] LABS: ALT 33 U/L (14-59); AST 19 U/L (15-37); Albumin 3.8 g/dL (3.4-5.0); Alkaline Phosphatase 125 U/L (46-116); BUN 24 mg/dL (7-18); Bilirubin, Total 0.45 mg/dL (0.2-1.0); CREATININE 0.7 mg/dL (0.55-1.02); Calcium 10.1 mg/dL (8.5-10.1); Calculated LDL 168 mg/dL (<100); Chloride 105 mmol/L (98-107); Cholesterol 278 mg/dL (<200); Estimated GFR 91.26 (mL/min/1.73m2); Glucose 102 mg/dL (74-106); HDL Cholesterol 76 mg/dL (40-60); Potassium 3.7 mmol/L (3.5-5.1); Sodium 140 mmol/L (136-145); Triglyceride 172 mg/dL (<150)
== END 2024-06-06 14:45 | disposition home or self-care (01) ==
LOC: LBO 14:45
PROVIDERS: PCP Family Medicine; Visit Provider Family Medicine
DX: E78.5 Hyperlipidemia, unspecified (principal); M81.0 Age-related osteoporosis without current pathological fracture
CPT/HCPCS: 36415; 80053; 80061; 82306

== ENCOUNTER 2024-06-10 03:33 | Outpatient (CLI) | payer MEDICARE, BC, SELFPAY ==
--- NOTE | 2024-06-10 12:58 | DI.MAMMO_ITS ---
Exam(s) MAMMO SCREENING EXAM: MAMMO SCREENING CLINICAL HISTORY: Screening, Z12.31. TECHNIQUE: Bilateral full field digital CC and MLO mammographic images were obtained with 3D tomosyn thesis and utilizing computer aided detection (CAD). COMPARISON: Prior mammograms were reviewed. FINDINGS: There has been no significant change in the appearance and distribution of the fibroglandular tissue. There are no new spiculated masses nor malignant appearing microcalcification groups. There is no significant architectural distortion nor skin thickening-retraction. IMPRESSION: No radiographic evidence of malignancy. BI-RADS Category 1 - Negative Breast Density - Category B - Scattered areas of fibroglandular density Breast density Category C or D implies that the patient has dense breast tissue. Dense breast tissue can make it harder to find cancer on a mammogram. Dense breast tissue is also associated with an incr eased risk of breast cancer. This information about the result of the mammogram report was provided to the patient to raise their awareness. Use this report when you speak with the patient about their risks for breast cancer, which includes their family history. At that time, you may recommend additional screening tests (Ultrasoun d or MRI) as these tests may add significant information. A negative radiographic report should not delay biopsy if a dominant or clinically suspicious mass is present. Up to ten percent of cancers are not identified on mammography. A negative report may reinforce clinical impression. Adenosis and dense breasts may obscure an underlying neoplasm. False positive reports average 6 to 10%. Patient will receive a letter notifying them of these results.
== END 2024-06-10 03:53 ==
LOC: DI 03:34
PROVIDERS: PCP Family Medicine; Visit Provider Family Medicine
DX: Z12.31 Encounter for screening mammogram for malignant neoplasm of breast (principal)
CPT/HCPCS: 77063; 77067

== ENCOUNTER 2024-07-10 03:30 | Outpatient (CLI) | payer MEDICARE, BC, SELFPAY ==
[2024-07-10 15:57] LABS: ALT 32 U/L (14-59); AST 20 U/L (15-37); Albumin 3.8 g/dL (3.4-5.0); Alkaline Phosphatase 120 U/L (46-116); Anion Gap 7.1 mmol/L (3-11); BUN 19 mg/dL (7-18); Bilirubin, Total 0.41 mg/dL (0.2-1.0); CO2 26.9 mmol/L (21.0-32.0); CREATININE 0.7 mg/dL (0.55-1.02); Calcium 10.6 mg/dL (8.5-10.1); Chloride 108 mmol/L (98-107); Estimated GFR 91.26 (mL/min/1.73m2); Glucose 89 mg/dL (74-106); Magnesium 2.3 mg/dL (1.8-2.4); PHOSPHORUS 3.6 mg/dL (2.6-4.7); Potassium 4.3 mmol/L (3.5-5.1); Sodium 142 mmol/L (136-145); Total Protein 7.1 g/dL (6.4-8.2)
[2024-07-12 09:55] LABS: Parathyroid Hormone,Intact 86 pg/mL (19-88)
[2024-07-12 12:52] LABS: IgA 113 mg/dL (85-499); Interpretation (See Note); Tissue Transglutaminase IgA <4.0 CU (<20.0)
[2024-07-12 14:17] LABS: Albumin 64.6 % (55.8-66.1); Albumin g/dL 4.3 g/dL (3.6-5.2); Immunotyping, Serum (See Note); Total Protein 6.6 g/dL (6.3-8.2)
== END 2024-07-10 03:31 | disposition home or self-care (01) ==
LOC: LBO 03:30
PROVIDERS: PCP Family Medicine; Visit Provider Student in an Organized Health Care Education/Training Program
DX: M81.0 Age-related osteoporosis without current pathological fracture (principal)
CPT/HCPCS: 36415; 80053; 82784; 83516; 83735; 83970; 84100; 84155; 84165; 86320

== ENCOUNTER 2024-07-14 12:33 | Outpatient (REF) | payer MEDICARE, BC, SELFPAY ==
[2024-07-14 13:24] LABS: Creatinine,Urine 38.94 mg/dL
[2024-07-14 13:28] LABS: Creatinine,24hr Ur 0.66 g/24hr (0.60-1.80); Total Volume 1750 ml
[2024-07-16 09:21] LABS: Calcium Urine 15.2 mg/dL (See Note); Calcium Urine 24 hr 266 mg/24hr (100-300); Timed Urine Volume 1750 mL
[2024-07-16 15:40] LABS: Albumin, Urine % 25.3 %; Albumin, Urine mg/24hrs 35 mg/24hrs; Globulins, Urine % 74.7 %; Globulins, Urine mg/24hrs 105 mg/24hrs; Immunotyping, Urine (See Note); Total Protein Urine 8 mg/dL (See Note); Total Protein, Urine 24hrs 140 mg/24hrs (<150); Urine Volume 1750 mL
== END 2024-07-14 12:34 | disposition home or self-care (01) ==
LOC: LBN 12:33
PROVIDERS: PCP Family Medicine; Visit Provider Student in an Organized Health Care Education/Training Program
DX: M81.0 Age-related osteoporosis without current pathological fracture (principal)
CPT/HCPCS: 84156; 84166; 86335; 81050; 82340; 82570

== ENCOUNTER 2024-11-05 03:26 | Outpatient (CLI) | payer MEDICARE, BC, SELFPAY ==
[2024-11-05 12:08] LABS: ALT 31 U/L (14-59); AST 18 U/L (15-37); Albumin 3.8 g/dL (3.4-5.0); Alkaline Phosphatase 126 U/L (46-116); Anion Gap 6.2 mmol/L (3-11); BUN 15 mg/dL (7-18); Bilirubin, Total 0.55 mg/dL (0.2-1.0); CO2 30.8 mmol/L (21.0-32.0); CREATININE 0.7 mg/dL (0.55-1.02); Calcium 10.8 mg/dL (8.5-10.1); Chloride 107 mmol/L (98-107); Estimated GFR 91.26 (mL/min/1.73m2); Glucose 82 mg/dL (74-106); Potassium 4.4 mmol/L (3.5-5.1); Sodium 144 mmol/L (136-145); Vitamin D 25 Total 42.9 ng/mL (30-100)
== END 2024-11-05 03:27 | disposition home or self-care (01) ==
LOC: LBO 03:26
PROVIDERS: PCP Family Medicine; Visit Provider Student in an Organized Health Care Education/Training Program
DX: E21.0 Primary hyperparathyroidism (principal)
CPT/HCPCS: 36415; 80053; 82306

== ENCOUNTER 2024-11-12 04:20 | Outpatient (RCR) | payer MEDICARE, BC, SELFPAY ==
[2024-11-12] MEDS: ZOLEDRONIC ACID/MANNITOL/WATER 5 MG/100 ML BTL 300 MG IVPB (10:14)
[2024-11-12] MEDS: Normal Saline Flush 10 ML SYR IVP (10:14)
[2024-11-12 10:15] VITALS: BP 108/66; PULSE 56; RESP 16; TEMP 36.2; O2SAT 99
[2024-11-12 10:38] VITALS: BP 105/67; PULSE 55; RESP 16; TEMP 36.6; O2SAT 98
== END 2024-11-22 23:59 | disposition home or self-care (01) ==
LOC: INF 04:20
PROVIDERS: PCP Family Medicine; Visit Provider Family Medicine
DX: M81.0 Age-related osteoporosis without current pathological fracture (principal)
CPT/HCPCS: 96365; J3489

== ENCOUNTER 2025-09-01 01:27 | Outpatient (CLI) | payer MEDICARE, BC, SELFPAY ==
[2025-09-01 12:31] LABS: Calcium 10.1 mg/dL (8.3-10.6)
== END 2025-09-01 01:28 | disposition home or self-care (01) ==
LOC: LBO 01:28
PROVIDERS: PCP Family Medicine
DX: E21.3 Hyperparathyroidism, unspecified (principal)
CPT/HCPCS: 36415; 82310; 83970